=== PATIENT | female | born 1955 | race Caucasian/White ===

== ENCOUNTER 2018-03-25 19:12 | Emergency (ER) | payer MEDICARE, MEDICAID, SELFPAY ==
[2018-03-25 19:13] VITALS: BP 184/105; PULSE 85; RESP 16; TEMP 36.6; O2SAT 97; BMI 29.0
--- NOTE | 2018-03-25 20:30 | ED.DCSUM_ITS ---
- ER Visit Summary Date of Service: 03/25/18 Chief Complaint: Right thigh pain History of Present Illness: The patient is a [address] Maloney. She reports that she was walking a goat when it took off and pulled her. She rather than letting go of the lesion began to run behind it. She tripped and fell forward. She reports that she felt something pop in the posterior right thigh. She has an aching, throbbing pain is 10 out of 10 severity. Is worsened by movement and relieved by rest. She denies any numbness or weakness. No other injuries. No blow to the head or loss of consciousness. No neck or back pain. Physical Examination: Vitals: Stable. Afebrile. Neck: No vertebral tenderness. Full ROM without difficulty. Cleared by NEXUS criteria. Back: No vertebral tenderness. General: A&O x 3. NAD. Cardiovascular exam: Regular rate and rhythm, no murmur, rub or gallop. Respiratory exam: Chest nontender. No crepitus. Clear to auscultation bilaterally. No wheezes or stridor. Abdominal exam: Soft, nontender, nondistended, normal bowel sounds. No pain in RUQ or LUQ specifically. No peritoneal signs. Extremity: Severe tenderness palpation over the posterior right thigh. No contusion or soft tissue swelling. Is no pain with internal/external rotation of her hip. She is neurovascular intact distal this. She has 2+ dorsalis pedis pulse. Test Results: Right femur x-ray is negative. Emergency Department Course and Treatment: Patient was treated the dose of fentanyl IM. She was then given a dose of Percocet p.o. Treatment Plan: A prolonged discussion with the patient at this time I do not have an exact explanation for her pain. She will be discharged with crutches, Percocet, and [place]. Instructed to follow-up with Dr Andre, whom she is seen in the past, in 1 week if not improving. Return to the emergency department for any worsening symptoms. Disposition: To home in improved and stable condition. Impression: 1. Right thigh pain, acute. This note was generated with [employer] software. It may contain incorrect words, spelling, and punctuation that were not noted in review of the chart prior to signing ED Disposition - Plan for ED Patient: Disposition: Home or Assisted Living Chief Complaint: Lower Extremity Injury Instructions: ED Strain Muscle Ext Prescriptions: Oxycodone HCl/Acetaminophen [Percocet 5/325] 1 tablet PO Q6H PRN PRN 5 Days #20 tablet PRN Reason: Pain Docusate Sodium [Colace] 100 mg PO DAILY #20 capsule Referrals: Sergio Rodgers DO [STAFF PHYSICIAN] - 1 Week if not improving
[2018-03-25] MEDS: fentaNYL 100 MCG/2 ML Ampul 50 MCG IM (21:12)
[2018-03-25] MEDS: oxyCODONE 5 MG Tablet 10 MG PO (21:13)
[2018-03-25 21:14] VITALS: BP 156/80; PULSE 80; RESP 14; O2SAT 98
== END 2018-03-25 21:28 | disposition home or self-care (01) ==
LOC: ED 19:35
PROVIDERS: Emergency Provider Emergency Medicine; Family Provider Student in an Organized Health Care Education/Training Program; PCP Student in an Organized Health Care Education/Training Program
DX: M79.651 Pain in right thigh (principal); W01.0XXA Fall on same level from slipping, tripping and stumbling without subsequent striking against object, initial encounter; Y93.K1 Activity, walking an animal; Y92.9 Unspecified place or not applicable; I10 Essential (primary) hypertension; Z79.899 Other long term (current) drug therapy; F17.200 Nicotine dependence, unspecified, uncomplicated
CPT/HCPCS: 73552; 96372; 99285

== ENCOUNTER 2020-07-10 17:45 | Emergency (ER) | payer MEDICARE, MEDICAID, SELFPAY ==
[2020-07-10 17:46] VITALS: BP 160/92; PULSE 72; RESP 28; TEMP 36.8; O2SAT 100; BMI 30.5
[2020-07-10 17:51] VITALS: BP 160/92; PULSE 72; RESP 28; TEMP 36.8; O2SAT 100
--- NOTE | 2020-07-10 18:16 | ED.DCSUM_ITS ---
History of Present Illness Chief Complaint: Back Narrative: This patient is a 65-year-old female who presents with lower back pain. This has been going on for about 2 months. She was initially seeing a chiropractor but that was not helping. She then saw her physicians at [facility]. She had an outpatient MRI yesterday which showed degenerative disc disease. She does complain of pain and numbness radiating to her right leg. She has no difficulty ambulating. She denies fevers abdominal pain urinary retention or fecal incontinence. She does states she is worried she may have a kidney infection because she has a foul odor to her urine. She does not have dysuria. She describes her pain as burning in nature. She has been treated with a Medrol Dosepak twice. Otherwise she has tried Tylenol. Past Medical History - Allergies and Home Meds Allergies/Adverse Reactions: Allergies codeine Allergy (Verified 04/23/16 10:17) Other ketorolac tromethamine [From Toradol] Adverse Reaction (Verified 04/23/16 10:17) Other morphine Adverse Reaction (Verified 04/23/16 10:17) Other Primary Care Physician: Ray Maloney DO [Primary Care Provider] - Past Medical History: - - Hypertension, hyperlipidemia Surgical History: cholecystectomy, section, pain Smoking Status: Current every day smoker Review of Systems All systems negative except as indicated General: Denies: Fever Eyes: Denies: Visual changes - bilaterally Cardiovascular: Denies: Chest pain Respiratory: Denies: Dyspnea Gastrointestinal: Denies: Abdominal pain, Nausea, Vomiting, Diarrhea Genitourinary: Denies: Dysuria Musculoskeletal: Reports: Back pain, Extremity Pain. Denies: Myalgias, Arthralgias Skin: Denies: Rash Neurological: Denies: Headache Hematologic: Denies: Easy bruising Allergy: Denies: Uticaria Physical Exam Vital Signs/Narrative: Vital Signs Temp Pulse Resp BP Pulse Ox 07/10/20 17:51 98.2 F 72 28 H 160/92 H 100 07/10/20 17:46 98.2 F 72 28 H 160/92 H 100 Inital Vital Signs reviewed: Yes General: Well nourished Head: Normocephalic Eyes: EOMI ENT: Moist mucous membranes Neck: Supple Cardiovascular: Regular rate, Regular rhythm Respiratory: No distress, CTA bilaterally Abdomen: Soft, Nontender, Nondistended Back: Nontender - No reproducible paraspinal or midline tenderness Extremities: - - Normal strength of the lower extremities, she has 5 out of 5 dorsiflexion, plantarflexion, extensor hallucis longus. She does complain of some decreased sensation of the right leg. Negative straight leg raise Skin: Normal color Neurological: Alert Diagnostic/Tx/Re-eval Laboratory Results 07/10/20 19:10 Urine Color Yellow Urine Clarity Turbid Urine pH 8.0 Ur Specific [place] 1.015 Urine Protein Negative Urine Glucose (UA) Normal Urine Ketones Negative Urine Occult Blood 150 H Urine Nitrite Negative Urine Bilirubin Negative Urine Urobilinogen Normal Ur Leukocyte Esterase 100 H Urine RBC 0 SEEN Urine WBC 0 SEEN Ur Squamous Epith Cells 0 SEEN Amorphous Sediment 4+ Urine Bacteria 0 SEEN Urine Mucus 0 SEEN - Medical Decision Making UA shows amorphous sediment. No bacteria no pyuria. This is not consistent with infection. Patient's pain seems to be musculoskeletal nature. She will be treated with oxycodone. She was advised to follow-up with her primary care physician. She does understand to return for new or worsening symptoms and was advised on signs and symptoms to monitor for. Patient was discharged. ED Disposition - Plan for ED Patient: Disposition: Home or Assisted Living Diagnosis: Back pain, DDD (degenerative disc disease) Instructions: ED Degenerative Disk Disease Prescriptions: Oxycodone HCl/Acetaminophen [Percocet 5/325] 1 tab PO Q6H PRN PRN 3 Days #12 tab PRN Reason: Pain/Inflammation Prescription Printed Referrals: Ray Maloney DO [Primary Care Provider] -
[2020-07-10] MEDS: Ibuprofen 600 MG Tablet PO (18:34)
[2020-07-10] MEDS: oxyCODONE 5 MG Tablet PO (18:34)
[2020-07-10 19:13] LABS: Bacteria 0 SEEN /hpf (None Seen); Mucous, Urine 0 SEEN /hpf (<or=2+); Red Blood Cells-Urine 0 SEEN /hpf (0-5); Squamous Epithelial Cells - UA 0 SEEN /hpf (5-10); White Blood Cells 0 SEEN /hpf (0-5)
[2020-07-10 19:16] LABS: Color, Urine Yellow (Yellow); Glucose, Dipstick Normal (Normal); Ketone-Dipstick Negative (Negative); Leukocyte Esterase-Dipstick 100 /ul (Negative); Nitrite-Dipstick Negative (Negative); Occult Blood-Urine 150 /ul (Negative); Protein-Dipstick Negative (Negative); Specific Gravity, Urine 1.015 (1.002-1.030); Urine Bilirubin Dipstick Negative (Negative); Urine Clarity Turbid (Clear); Urine Urobilinogen Normal (Normal)
[2020-07-10 19:22] LABS: Amorphous Sediment 4+
[2020-07-10 20:07] VITALS: BP 161/95; PULSE 82; PULSE 85; RESP 28; O2SAT 100; O2SAT 99
== END 2020-07-10 20:43 | disposition home or self-care (01) ==
LOC: ED 20:16
PROVIDERS: Emergency Provider Emergency Medicine; PCP Student in an Organized Health Care Education/Training Program
DX: M51.36 Other intervertebral disc degeneration, lumbar region (principal); I10 Essential (primary) hypertension; E78.5 Hyperlipidemia, unspecified; Z90.49 Acquired absence of other specified parts of digestive tract; Z79.899 Other long term (current) drug therapy; F17.200 Nicotine dependence, unspecified, uncomplicated
CPT/HCPCS: 81001; 99284; A4216

== ENCOUNTER 2020-11-15 10:00 | Outpatient (RCR) | payer MEDICARE, MEDICAID, SELFPAY ==
--- NOTE | 2020-10-22 14:19 | HP.PTEVAL ---
Patient's Visit Information MIKE HINOJOSA is a 65 year old F referred to Physical Therapy by Dr. Ray Maloney DO with a diagnosis of LUMBAR DDD AND STENOSIS. Date of Evaluation: 10/22/20 Physical Therapist: Caty Petit PT, Cert MDT - Visit Plan Frequency: 2-3x /Week Duration: 4-6 Weeks Plan: AQUATIC THERPAY FOR PAIN RELIEF, POSTURE CORRECTION/STRENGTHENING, INSTRUCTION IN APPROPRIATE BODY MECHANICS AND ACTIVITY MODIFICATIONS. DLS WITH A NEUTRAL SPINE TOLERATED. ÁLVARO LE ROM, STRETCHING AND STRENGTHENING. HEP INSTRUCTION. - Subjective THIS PATIENT WAS REFERRED TO PT BY DR. MURPHY WITH DX'S OF LUMBAR DDD AND SPINAL STENOSIS WITH NERUOGENIC CLAUDICATION. Work/Leisure: RETIRED. Present symptoms: LOW BACK PAIN. RIGHT THIGH, KNEE, LEG AND FOOT/TOE PAIN, NUMBNESS AND TINGLING. NO L LE SX'S. Present since: JUN 2020. Pain Scale: WORST 7/10, LEAST 1/10. Currently: 10/17. Commenced as a result of: NO APPARENT REASON. Symptoms at onset: LOW BACK AND RIGHT LE. Worse: WALKING, RIDING IN A CAR, BENDING, RISING FROM SITTING, GETTING DRESSED IS AN ORDIAL - HAS TO LAY ON BACK TO PULL SOCKS ON, COOKING, CLEANING, STANDING. ROLLING OVER IN BED. Better: LYING DOWN, PUTTING R LEG UP - RECLINER. Disturbed sleep: YES - GETS SHOOTING PAINS ROLLING OVER IN BED. Previous history/Previous treatment: CHRONIC BACK PAIN TREATED WITH CHIROPRACTIC AND PHYSICAL THERAPY. NO BACK SURGERY. HAS BEEN IN PAIN MGMT BEFORE TOO AND HAS HAD PRIOR YANNICK'S. TREATMENT THIS EPISODE: YANNICK'S - 2 IN SEP AND ONE PENDING TOMORROW. PATIENT REPORTS THAT HER BACK PAIN GOT BETTER AFTER THE SECOND INJECTION BUT HER LEG PAIN IS NO BETTER. HAS BEEN TO TWO DIFFERENT CHIROPRACTORS BUT DIDN'T DO ANYTHING. Coughing/sneezing/straining: NEGATIVE. Gait: PATIENT REPORTS SHE IS LIMPING ON HER R LE. STATES HER KNEE HURTS A LOT. USED A CANE WHEN THIS EPISODE FIRST STARTED BUT NOT USING ANY ASSISTIVE DEVICES NOW. Difficulty initiating urinatin: NO. Accidents: NO. Unexplained weight loss: NO. Imaging: JUN 2020 HAD LUMBAR MRI [facility] - PATIENT REPORTS SHE WAS TOLD SHE HAS ANOTHER HERNIATED DISC AND DEGENRATIVE DISC DISEASE. PMH: HTN, CARDIAC CATH 2013 - JUST A TEST - NO HEART TREATMENT PER PATIENT REPORT. 2 CERVICAL FUSIONS 2008 AND 2011. OTHER: PATIENT REPORTS THAT DR. JONES RECOMMENDED SHE TRY ONE MORE INJECTION TO TRY TO HELP HER LEG AND THEN TO FOLLOW UP WITH HIM AGAIN. FOLLOW UP PENDING WITH DR. JONES APPROX NOVEMBER 06 2020. - Objective Sitting/Standing Posture: POOR. FH. DECREASED KYPHOSIS. Lordosis: REDUCED. Lateral shift: YES - TO THE LEFT. Relevant shift: NO - ABLE TO CROSS MIDLINE TO THE RIGHT. Active Correction of posture: WORSE BUT TOLERATES PASSIVE CORRECTION WITH LUMBAR SUPPORT IN SITTING IN CLINIC WELL TODAY. Other Observations: THIS PATIENT AMBULATES INDEP'LY INTO PT WITHOUT ANY ASSISTIVE DEVICES LIMPING ON THE R LE. MILD INCREASED TRUNK FLEX. NO LOB. Motor deficit: L LE STRENGTH - 5/5 EXCEPT L HIP 4/5. R LE: HIP 4-/5, KNEE 4-/5, ANKLE 5/5. Sensory deficit: ÁLVARO LE LIGHT TOUCH SENSATION APPEARS INTACT AND SYMMETRICAL EXCEPT RIGHT LATERAL LEG. ROM deficit: TIGHT ÁLVARO HIP FLEXORS, HS'S AND GASTROC SOLEUS COMPLEX'S. Reflexes: UNABLE TO ELICIT ÁLVARO LE DTR'S. Dural Signs: POSITIVE R LE. Lumbar mvmt loss: flex - MIN. ext - JASON. R SG - JASON. L SG - MOD. PATIENT REPORTS INCREASED PAIN WITH R SG TESTING. Core strength: POOR. Palpation: NO ACUTE LOW BACK, SACRAL OR BUTTOCK TENDERNESS BUT VERY TIGHT LUMBAR PARASPINALS. TREATMENT: NEUROMUSCULAR REEDUCATION - RETRAINING OF MVMT AND POSTURE FOR SITTING, LYING AND STANDING ACTIVITIES. - Goals Goal 1:: DECREASE C/O LOW BACK AND R LE SX'S. Goal Time Frame: 4-6 Weeks Goal 2:: IMPROVE LIFTING, ADL, WALKING, SITTING, STANDING, SOCIAL LIFE, TRAVEL AND HOMEMAKING FUNCTION. Goal Time Frame: 4-6 Weeks Goal 3:: INSTRUCT IN PROPHYLAXIS Goal Time Frame: 4-6 Weeks - Anticipated Interventions Patient/Client Instruction: Educate patient on: Condition, Plan of Care, Risk Factors, Benefits of Fitness Program For the Purpose of:: To improve self management Therapeutic Exercise to Include: Strength training, Body mechanics, Postural training, Flexibilty training, Gait and locomotor training, Neuromotor development, In an aquatic setting, Dynamic Lumbar Stabilization For the Purpose of:: To decrease pain, To increase ROM, To improve muscle performance and motor function, To increase tolerance to activity/condition/position, To improve ability of physical actions for home/community/work/leisure, To improve gait and locomotor functions Cryotherapy (ice pack, ice massage): Yes Thermo therapy (hot pack): Yes Ultrasound (thermal/non thermal): Yes For the Purpose of:: To decrease pain, To improve nutrient delivery to tissue Thank you for the opportunity to evaluate your patient. For Medicare and Medicare HMO plans, please review the plan of care and approve it. It will need to be FAXED BACK to us at [phone] for Medicare purposes. For Medicare only, by signing this I certify the plan of care. Please let me know if there are questions or concerns regarding this plan of care. Physician Signature: Date:
--- NOTE | 2021-05-19 17:11 | HP.PT.NRP ---
MIKE HINOJOSA was seen in my office for initial evaluation on 10/22/20. The following Plan of Care was established for this patient: Initial Frequency: 2-3x /Week Initial Duration: 4-6 Weeks Patient/Client Instruction: Educate patient on: Condition, Plan of Care, Risk Factors, Benefits of Fitness Program For the Purpose of:: To improve self management Therapeutic Exercise to Include: Strength training, Body mechanics, Postural training, Flexibilty training, Gait and locomotor training, Neuromotor development, In an aquatic setting, Dynamic Lumbar Stabilization For the Purpose of:: To decrease pain, To increase ROM, To improve muscle performance and motor function, To increase tolerance to activity/condition/position, To improve ability of physical actions for home/community/work/leisure, To improve gait and locomotor functions Cryotherapy (ice pack, ice massage): Yes Thermo therapy (hot pack): Yes Ultrasound (thermal/non thermal): Yes For the Purpose of:: To decrease pain, To improve nutrient delivery to tissue This patient was last seen in our office 11/15/20. Pertinent comments regarding their Physical therapy will appear below: This patient has not returned to Physical Therapy and is appropriate to return to MD for further follow-up as needed. At this point I will be discontinuing this patient from physical therapy. I would be happy to see this patient again in the future if found appropriate by the physician. Thank you! Caty Petit, PT, Cert MDT Balance/Gait/Functional tests - Balance/Special Test Scores Oswestry Low Back Score: 24
== END 2020-11-15 19:00 | disposition home or self-care (01) ==
LOC: PT 10:00
PROVIDERS: PCP Student in an Organized Health Care Education/Training Program; Referring Provider Student in an Organized Health Care Education/Training Program; Visit Provider Student in an Organized Health Care Education/Training Program
DX: M51.36 Other intervertebral disc degeneration, lumbar region (principal); M48.062 Spinal stenosis, lumbar region with neurogenic claudication; M51.26 Other intervertebral disc displacement, lumbar region
CPT/HCPCS: 97112; 97113; 97162; 97530

== ENCOUNTER 2023-05-12 11:29 | Outpatient (CLI) | payer MEDICARE, MEDICAID, SELFPAY ==
[2023-05-12 12:16] LABS: Absolute Lymphocyte Count 2.67 X10^3/uL (0.83-4.51); Absolute Neutrophil Count 3.6 X10^3/uL (2.0-7.7); Basophil# 0.03 X10^3/uL; Basophil% 0.4 % (0-1); Eosinophil# 0.15 X10^3/uL; Eosinophils% 2.1 % (0-5); Hematocrit 40.7 % (37-47); Hemoglobin 13.3 g/dL (12.0-15.0); Lymphocyte # 2.67 X10^3/ul (0.83-4.51); Lymphocyte % 38.3 % (19-41); Mean Corp Hgb Conc 32.7 g/dL (32-36); Mean Corpuscular Hgb 30.1 pg (27.0-32.0); Mean Corpuscular Volume 92.1 fL (81-99); Mean Platelet Vol. 9.9 fl (6.2-12.0); Monocyte% 7.2 % (0-10); NRBC Flagged by Analyzer 0 % (0-5); Neutrophil # 3.61 X10^3/uL (2.7-7.7); Neutrophil % 51.7 % (47-70); Platelet Count 266 K/mm3 (150-450); RBC Distribution Width CV 13.1 % (11.6-14.6); RBC Distribution Width SD 44.2 fl (35.1-43.9); Red Blood Count 4.42 M/mm3 (4.2-5.4)
[2023-05-12 13:12] LABS: ALB/GLOB Ratio 1.2 RATIO (0.9-2.4); AST(SGOT) 15 U/L (15-37); Alanine Aminotransfer ALT/SGPT 19 U/L (13-56); Albumin, Serum 3.7 g/dL (3.2-5.0); Alkaline Phosphatase 75 U/L (45-117); Anion Gap 6 (5-15); BUN 9 mg/dL (7-18); Calcium,Total 8.6 mg/dL (8.5-10.1); Chloride 107 mmol/L (98-107); Creatinine, Serum 0.75 mg/dL (0.55-1.02); EST Glomerular Filtration Rate 82 mL/min (>60); Est Glom Filt Rate - Afr Amer 99 mL/min (>60); Estradiol 14.3 pg/mL; Follicle Stimulating Hormone 89.4 mIU/mL; Globulin 3.2 g/dL (2.2-4.2); Glucose 91 mg/dL (74-106); Luteinizing Hormone 29.2 mIU/mL; Potassium 4.1 mmol/L (3.5-5.1); Protein, Total 6.9 g/dL (6.4-8.2); Sodium Level 139 mmol/L (136-145); Thyroid Stim Hormone (TSH) 1.95 uIU/mL (0.358-3.74)
[2023-05-12 13:24] LABS: Hemoglobin A1c 5.2 % (3.8-5.6)
== END 2023-05-12 23:59 | disposition home or self-care (01) ==
LOC: LAB 11:34
DX: N95.1 Menopausal and female climacteric states (principal); I10 Essential (primary) hypertension; Z13.1 Encounter for screening for diabetes mellitus; R61 Generalized hyperhidrosis
CPT/HCPCS: 36415; 80053; 82670; 83001; 83002; 83036; 84443; 85025